=== PATIENT | male | born 1965 | race African-American/Black ===

== ENCOUNTER → 2023-01-02 | Day surgery (SDC) | payer OTHER ==
[~2023-01-02] MED LIST: BACLOFEN10 MG PO; DICYCLOMINE HCL10 MG PO; FAMOTIDINE20 MG PO; FLONASE ALLERG9.9 ML INH; GLUCAGON FOR INJ 1 MG VIAL ONE; GLYCOPYRROLATE INJ 0.2 MG/ML VIAL ONE; LACTATED RINGER'S 1,000 ML ONE; LIDOCAINE HCL 2% LOCAL INJ 5 ML SDV VIAL INJ ONE; MIDAZOLAM HCL 2 MG/2 ML VIAL ONE; POVIDONE IODINE 0.05% 0.05 % ML PO ONE; PROCTOZONE-HC30 G1 RC; PROPOFOL IV EMULSION 10 MG/ML 20 ML VIAL ONE
[2023-01-02 10:15] VITALS: BP 118/79; PULSE 70; RESP 17; O2SAT 98
== END | disposition home or self-care (01) ==
LOC: OR 06:50
PROVIDERS: ATTEND Internal Medicine Gastroenterology
DX: K29.50 Unspecified chronic gastritis without bleeding (principal); D12.2 Benign neoplasm of ascending colon; D12.3 Benign neoplasm of transverse colon; K52.9 Noninfective gastroenteritis and colitis, unspecified; K44.9 Diaphragmatic hernia without obstruction or gangrene; K64.8 Other hemorrhoids; F17.290 Nicotine dependence, other tobacco product, uncomplicated; Z01.810 Encounter for preprocedural cardiovascular examination
CPT/HCPCS: 43239; 45380; 45384; 88305; 88342; 93005; J1610; J2001; J2250; J2704; J7121; 45378